=== PATIENT | male | born 1990 | race Caucasian/White ===

== ENCOUNTER 2020-02-11 00:15 | Inpatient (IN) | payer OTHER ==
[~2020-02-11] VITALS: Ht 180.3 cm; Wt 58.7 kg
[2020-02-11 00:48] LABS: BASOPHILS % (AUTO) 0.3 % (0.0-5.0); EOSINOPHILS % (AUTO) 0.3 % (0.0-8.0); HEMATOCRIT 44.8 % (42-54); MEAN CORPUSCULAR HGB CONC 36.6 g/dL (32.0-36.0); MEAN CORPUSCULAR VOLUME 90.1 fL (79-99); MONOCYTES % (AUTO) 9.3 % (3.0-13.0); NEUTROPHILS % (AUTO) 66.8 % (40.0-77.0); PLATELET COUNT (AUTO) 242 K/uL (130-400); RED BLOOD CELL COUNT(AUTO) 4.97 MIL/uL (4.50-6.20); RED CELL DISTRIBUTION WIDTH 11.8 % (11.0-15.5); WHITE BLOOD COUNT (AUTO) 11.6 K/uL (4.8-10.8)
[2020-02-11 00:51] LABS: APPEARANCE,URINE Cloudy (CLEAR); BILIRUBIN,URINE Negative (NEGATIVE); COLOR,URINE Yellow (YELLOW); GLUCOSE, URINE (UA) Negative (NEGATIVE); KETONES,URINE Trace mg/dL (NEGATIVE); LEUKOCYTE ESTERASE ,URINE Trace (NEGATIVE); NITRATE,URINE Negative (NEGATIVE); OCCULT BLOOD,URINE Negative (NEGATIVE); PH,URINE 7.5 (5.0-8.0); PROTEIN,URINE POS 2+ mg/dL (NEGATIVE)
[2020-02-11 00:56] LABS: CREATININE 3.2 mg/dL (0.5-1.5); POTASSIUM 4.3 mmol/L (3.5-5.1)
[2020-02-11 01:03] LABS: AMORPHOUS SEDIMENT,UR Few /LPF (None Seen); BACTERIA,URINE Few /HPF (None Seen); CALCIUM OXALATE CRYSTALS,UR Moderate /LPF (None Seen); RBC,URINE None Seen /HPF (0-1); SQUAMOUS EPITHELIAL CELL,UR Moderate /HPF (0-2)
[2020-02-11] MEDS ORDERED: ASPIRIN 325 MG TABLET ONE (01:18)
[2020-02-11] MEDS: SODIUM CHLORIDE 0.9% 1000ML 1,000 ML IV SCH ×4 (03:16→23:16)
[2020-02-11] MEDS ORDERED: HYDRALAZINE HCL 20 MG/ML VIAL IV PRN (03:30)
[2020-02-11] MEDS ORDERED: ACETAMINOPHEN 325 MG TAB PO PRN ×2 (03:30)
[2020-02-11] MEDS ORDERED: ONDANSETRON HCL 4 MG/2 ML VIAL IV PRN (03:30)
[2020-02-11] MEDS ORDERED: LACTULOSE 20 GM/30 ML UDCUP PO PRN (03:30)
[2020-02-11 04:05] LABS: AMPHET/METH SCREEN,URINE NEGATIVE (NEGATIVE); BARBITURATE SCREEN, URINE NEGATIVE (NEGATIVE); BENZODIAZEPINES SCREEN,URINE NEGATIVE (NEGATIVE); CANNABINOID SCREEN,URINE POSITIVE (NEGATIVE); COCAINE SCREEN,URINE NEGATIVE (NEGATIVE); OPIATE SCREEN,URINE NEGATIVE (NEGATIVE); PHENCYCLIDINE SCREEN,URINE NEGATIVE (NEGATIVE)
[2020-02-11 05:26] VITALS: BP 121/50
[2020-02-11] MEDS ORDERED: RISP1TAB26 PO (05:36)
[2020-02-11] MEDS ORDERED: LISI10TA7 PO (05:38)
[2020-02-11] MEDS ORDERED: FLU VACC QS2020-21(6MOS UP)/PF 60 MCG/0.5 ML ML IM ONE (06:30)
--- NOTE | 2020-02-11 06:35 | NUR ---
ADMISSION NEW PATIENT ADMITTED TO THE UNIT ALERT & ORIENTED X 3. ADMITTED TO THE UNIT, MEDICATION RECONCILED AND MADE COMFORTABLE IN BED. DENIES PAIN AT THIS TIME. INSTRUCTED ON USE OF CALL LIGHT AND SAFETY MEASURES REINFORCED.
[2020-02-11 08:45] VITALS: BP 124/81
[2020-02-11 09:25] LABS: ALBUMIN 3.9 g/dL (3.5-5.0); BILIRUBIN,TOTAL 0.5 mg/dL (0.2-1.0); CREATININE 2.4 mg/dL (0.5-1.5); POTASSIUM 3.9 mmol/L (3.5-5.1); TOTAL PROTEIN, SERUM 7.5 g/dL (6.0-8.3)
--- NOTE | 2020-02-11 09:30 | NUR ---
IA- SPOKE WITH PATIENT FOR DC PLANNING PATIENT LIVES WITH [facility] , WHO WILL PROVIDE TRANSPORT. PATIENT IS ACTIVE, EMPLOYED, DRIVES, NO DME, AND RARELY SEE MD. [facility] WAS WORKING WITH COUSIN AND IN THE HEAT DRINKING WHILE THEY WORKED. [facility] WANTS TO QUIT DRINKING AFTER THIS EPISODE, FELT TERRIBLE,!! PLAN OF CARE DISCUSSED, EXPECT DC IN 24-48 HRS, IVF INFUSING, DCP TO HOME, NO DC NEEDS ANTICIPATED, CM TO FOLLOW Addendum: 02/11/20 at 2125 by LOUIE FERGUSON RN CM Amended: Links added.
[2020-02-11] MEDS: FAMOTIDINE 20MG TAB 20 MG TAB PO SCH (10:45)
[2020-02-11] MEDS: ENOXAPARIN SODIUM 30 MG/0.3 ML SQ SCH (10:45)
[2020-02-11] MEDS: ASPIRIN 81MG TAB.CHEW PO SCH (10:45)
[2020-02-11] MEDS: METOPROLOL TARTRATE 25 MG TAB PO SCH ×2 (10:45→21:33)
[2020-02-11 12:00] VITALS: BP 153/86
[2020-02-11 16:00] VITALS: BP 147/89
[2020-02-11 19:54] VITALS: BP 137/83
[2020-02-11 23:29] VITALS: BP 124/72
[2020-02-12 03:41] VITALS: BP 107/73
[2020-02-12 04:57] LABS: BASOPHILS % (AUTO) 0.5 % (0.0-5.0); EOSINOPHILS % (AUTO) 3.4 % (0.0-8.0); HEMATOCRIT 40.9 % (42-54); LYMPHOCYTES % (AUTO) 56.1 % (21.0-51.0); MEAN CORPUSCULAR HEMOGLOBIN 32.4 pg (27.0-33.0); MEAN CORPUSCULAR HGB CONC 34.7 g/dL (32.0-36.0); MEAN CORPUSCULAR VOLUME 93.4 fL (79-99); MONOCYTES % (AUTO) 10.6 % (3.0-13.0); NEUTROPHILS % (AUTO) 28.9 % (40.0-77.0); PLATELET COUNT (AUTO) 212 K/uL (130-400); RED BLOOD CELL COUNT(AUTO) 4.38 MIL/uL (4.50-6.20); RED CELL DISTRIBUTION WIDTH 11.7 % (11.0-15.5); WHITE BLOOD COUNT (AUTO) 6.2 K/uL (4.8-10.8)
[2020-02-12 05:34] LABS: CREATININE 1.2 mg/dL (0.5-1.5); POTASSIUM 4.7 mmol/L (3.5-5.1)
[2020-02-12 08:00] VITALS: BP 126/83
[2020-02-12] MEDS: FAMOTIDINE 20MG TAB 20 MG TAB PO SCH (09:43)
[2020-02-12] MEDS: FOLIC ACID/VITAMIN B COMP W-C 1 CAP TAB PO SCH (09:43)
[2020-02-12] MEDS: METOPROLOL TARTRATE 25 MG TAB PO SCH ×2 (09:43→22:11)
[2020-02-12] MEDS: SODIUM CHLORIDE 0.9% 1000ML 1,000 ML IV SCH ×3 (09:43→22:08)
[2020-02-12] MEDS: ASPIRIN 81MG TAB.CHEW PO SCH (09:44)
[2020-02-12] MEDS: ENOXAPARIN SODIUM 30 MG/0.3 ML SQ SCH (09:45)
[2020-02-12] MEDS: THIAMINE HCL 100 MG/ML 2ML VIAL IVP SCH (09:48)
[2020-02-12 12:00] VITALS: BP 124/68
[2020-02-12 16:00] VITALS: BP 111/66
[2020-02-12 20:59] VITALS: BP 136/79
[2020-02-13 00:23] VITALS: BP 116/65
[2020-02-13] MEDS: SODIUM CHLORIDE 0.9% 1000ML 1,000 ML IV SCH ×2 (02:35→09:57)
[2020-02-13 06:29] VITALS: BP 119/66
[2020-02-13 06:40] LABS: HEMATOCRIT 40.5 % (42-54); MEAN CORPUSCULAR HEMOGLOBIN 32.6 pg (27.0-33.0); MEAN CORPUSCULAR HGB CONC 35.1 g/dL (32.0-36.0); MEAN CORPUSCULAR VOLUME 93.1 fL (79-99); RED BLOOD CELL COUNT(AUTO) 4.35 MIL/uL (4.50-6.20); RED CELL DISTRIBUTION WIDTH 11.5 % (11.0-15.5); WHITE BLOOD COUNT (AUTO) 6.3 K/uL (4.8-10.8)
[2020-02-13 07:14] LABS: ALBUMIN 3.6 g/dL (3.5-5.0); BILIRUBIN,TOTAL 0.3 mg/dL (0.2-1.0); CREATININE 1.2 mg/dL (0.5-1.5); POTASSIUM 4.6 mmol/L (3.5-5.1); TOTAL PROTEIN, SERUM 7.2 g/dL (6.0-8.3)
[2020-02-13 08:23] VITALS: BP 160/96
[2020-02-13] MEDS: FAMOTIDINE 20MG TAB 20 MG TAB PO SCH (09:55)
[2020-02-13] MEDS: FOLIC ACID/VITAMIN B COMP W-C 1 CAP TAB PO SCH (09:55)
[2020-02-13] MEDS: ASPIRIN 81MG TAB.CHEW PO SCH (09:55)
[2020-02-13] MEDS: METOPROLOL TARTRATE 25 MG TAB PO SCH (09:55)
[2020-02-13] MEDS: THIAMINE HCL 100 MG/ML 2ML VIAL IVP SCH (09:55)
[2020-02-13] MEDS: ENOXAPARIN SODIUM 30 MG/0.3 ML SQ SCH (09:56)
[2020-02-13 11:52] VITALS: BP 135/88
--- NOTE | 2020-02-13 17:03 | NUR ---
PATIENT DISCHARGE PATIENT DISCHARGE, IV DISCONTINUED, CATHLON INTACT, BLEEDING CONTROLLED, PATIENT TOLERATED WITHOUT INCIDENT. DISCUSSED WITH PATIENT THE IMPORTANCE OF FOLLOW UP APPOINTMENTS AND HE WOULD HAVE TO CALL TO SCHEDULE, PROVIDED HIM WITH PHONE NUMBERS. DISCUSSED WITH PATIENT THE CHANGES IN MEDICATIONS. PATIENT STATED HE UNDERSTOOD AND HAD NO ADDITIONAL QUESTIONS.
== END 2020-02-13 17:05 | disposition home or self-care (01) | DRG 683 ==
LOC: EDH 00:15 → EDHIP 03:16 → 4CH 04:41
PROVIDERS: ADMIT Internal Medicine; ATTEND Internal Medicine
DX: N17.9 Acute kidney failure, unspecified (principal); M62.82 Rhabdomyolysis; F41.9 Anxiety disorder, unspecified; I10 Essential (primary) hypertension; F19.10 Other psychoactive substance abuse, uncomplicated; T67.5XXA Heat exhaustion, unspecified, initial encounter; X30.XXXA Exposure to excessive natural heat, initial encounter; Y93.89 Activity, other specified; Y92.89 Other specified places as the place of occurrence of the external cause; Y99.8 Other external cause status
CPT/HCPCS: 36415; 76770; 80048; 80053; 80305; 81001; 82550; 84484; 85025; 85027; 93005; 93306; 93356; G0378; J1650; J3411; J7030; Q2035

== ENCOUNTER 2023-07-25 11:02 | Emergency (ER) | payer OTHER ==
[~2023-07-25] VITALS: Ht 180.3 cm; Wt 124.7 kg
[~2023-07-25 11:02] MED LIST: RISP-30 PO
[2023-07-25 11:33] LABS: BASOPHILS # (AUTO) 0.05 K/uL (0.00-0.20); BASOPHILS % (AUTO) 0.4 % (0.0-5.0); EOSINOPHILS # (AUTO) 0.18 K/uL (0.00-0.70); EOSINOPHILS % (AUTO) 1.3 % (0.0-8.0); HEMATOCRIT 41.7 % (42-54); IMMATURE GRANULOCYTE ABSOLUTE 0.05 K/uL (0-1); LYMPHOCYTES # (AUTO) 1.6 K/uL (1.0-4.8); LYMPHOCYTES % (AUTO) 11.7 % (21.0-51.0); MEAN CORPUSCULAR HEMOGLOBIN 33.1 pg (27.0-33.0); MEAN CORPUSCULAR HGB CONC 36.5 g/dL (32.0-36.0); MEAN CORPUSCULAR VOLUME 90.8 fL (79-99); MONOCYTES # (AUTO) 1.6 K/uL (0.1-1.0); MONOCYTES % (AUTO) 11.4 % (3.0-13.0); NEUTROPHILS # (AUTO) 10.5 K/uL (1.8-7.7); NEUTROPHILS % (AUTO) 74.8 % (40.0-77.0); PLATELET COUNT (AUTO) 243 K/uL (130-400); RED BLOOD CELL COUNT(AUTO) 4.59 MIL/uL (4.50-6.20); RED CELL DISTRIBUTION WIDTH 11.9 % (11.0-15.5)
[2023-07-25 11:46] LABS: ALBUMIN 3.3 g/dL (3.5-5.0); BILIRUBIN,TOTAL 0.8 mg/dL (0.2-1.0); MAGNESIUM 2.2 mg/dL (1.80-2.40); POTASSIUM 4.1 mmol/L (3.5-5.1); TOTAL PROTEIN, SERUM 8.1 g/dL (6.0-8.3)
[2023-07-25 13:26] LABS: SARS-CoV-2, RNA, NAAT NEGATIVE SARS CoV-2 (NEGATIVE)
[2023-07-25 13:30] LABS: INFLUENZA TYPE A Negative For Type A (NEGATIVE); INFLUENZA TYPE B Negative For Type B (NEGATIVE)
[2023-07-25] MEDS: ACETAMINOPHEN 325 MG TAB PO ONE (13:33)
[2023-07-25 14:46] VITALS: TEMP 98.2
[2023-07-25] MEDS ORDERED: IBUP-2070 PO (15:44)
[2023-07-25] MEDS ORDERED: AZIT250T9 PO (15:44)
[2023-07-25 16:04] VITALS: BP 150/86; PULSE 100; RESP 18; O2SAT 95
== END 2023-07-25 16:09 | disposition home or self-care (01) ==
LOC: EDH 11:02
DX: J06.9 Acute upper respiratory infection, unspecified (principal); B34.9 Viral infection, unspecified; R07.89 Other chest pain; Z20.822 Contact with and (suspected) exposure to COVID-19; I10 Essential (primary) hypertension
CPT/HCPCS: 36415; 71045; 80053; 83605; 83735; 84484; 85025; 87040; 87635; 87804; 93005